=== PATIENT | female | born 1990 | race Caucasian/White ===

== ENCOUNTER 2022-12-09 08:00 | Emergency (ER) | payer OTHER, SELFPAY ==
[2022-12-09 08:10] VITALS: BP 144/80; PULSE 116; RESP 16; TEMP 38; O2SAT 99
--- NOTE | 2022-12-09 08:10 | ED.GENADULT ---
HPI - General Adult General Chief complaint: Upper Respiratory Infection Stated complaint: e/n/t Source: patient and RN notes reviewed History of Present Illness HPI narrative: 32-year-old female presents to urgent care with complaints of fever and sore throat starting last night. Patient states her daughter at home has strep throat. Patient states she took Tylenol last at 3 am. Patient reports bilateral ear pain. Denies any congestion, headache, vomiting, diarrhea, chest pain, or shortness of breath. Some parts of this dictation were generated by voice recognition software and may contain typographical and/or grammatical inaccuracies. Related Data Home Medications Medication Instructions Recorded Confirmed levonorgestrel 0.15 mg-ethinyl 1 tablet PO DAILY 12/09/22 12/09/22 estradiol 0.03 mg tablet (Reginald (28)) Allergies Allergy/AdvReac Type Severity Reaction Status Date / Time cetirizine Allergy Unknown HEART Verified 12/09/22 08:10 RACING Review of Systems Review of Systems: CONSTITUTIONAL:Fevers EYES: Denies visual changes, redness, or discharge. ENT: reports otalgia and sore throat CARDIOVASCULAR: Denies chest pain, palpitations, or edema. RESPIRATORY: Denies cough or dyspnea. GASTROINTESTINAL: Denies abdominal pain, nausea, vomiting, or diarrhea. GENITOURINARY: Denies dysuria or hematuria. SKIN: Denies rash or itching. MUSCULOSKELETAL: Denies back pain, joint pain, or myalgia. NEUROLOGIC: Denies headache, numbness, or weakness. PMFSH Comments At the time of my signature, I reviewed and agree with the nursing past medical, surgical, social, and family history. There is no relevant family history pertinent to the patient complaint. Exam Narrative: GENERAL: This is a well-nourished, well-developed patient, in no apparent distress. HEAD: normocephalic, atraumatic. EYES: PERRL. Sclera clear/white. Vision is grossly intact. EARS: External ears normal, auditory canals clear and without drainage, TMs normal without perforation. Hearing grossly intact. NOSE: External nose normal with no obvious nasal discharge, nares without redness, no rhinorrhea. THROAT: Posterior pharynx is erythremic with tonsils 2+ bilaterally. No exudate noted. NECK: Neck supple, non-tender without lymphadenopathy, masses or thyromegaly. CARDIOVASCULAR: Regular rate and rhythm without murmurs, gallops, or rubs. RESPIRATORY: Clear to auscultation. Breath sounds equal bilaterally. No wheezes, rales, or rhonchi. GASTROINTESTINAL: Abdomen soft, non-tender, nondistended. Bowel sounds are active. No hepato-splenomegaly, or palpable masses. No guarding. SKIN: warm, intact with no suspicious lesions or rash, good texture and turgor. NEURO: awake, alert, and oriented to person, place and time. There were no obvious focal neurologic abnormalities. Course Course Level of Care: Express Care Visit Vital Signs Vital signs: Vital Signs Temperature 100.4 F H 12/09/22 08:10 Pulse Rate 116 H 12/09/22 08:10 Respiratory Rate 16 12/09/22 08:10 Blood Pressure 144/80 H 12/09/22 08:10 Pulse Oximetry 99 12/09/22 08:10 Oxygen Delivery Room Air 12/09/22 08:10 Temperature 100.4 F H 12/09/22 08:10 Pulse Rate 116 H 12/09/22 08:10 Respiratory Rate 16 12/09/22 08:10 Blood Pressure 144/80 H 12/09/22 08:10 Pulse Oximetry 99 12/09/22 08:10 Oxygen Delivery Room Air 12/09/22 08:10 Reviewed. Medical Decision Making MDM Narrative Medical decision making narrative: After 24 hours on antibiotics throw tooth brush away and start using a new one. Do not share drinks. Take Motrin alternating with Tylenol for pain and fever alternating every 4 hours. Increase fluids, avoid caffeine. Follow up with Primary provider if not getting better this week Differential Diagnosis Differential Diagnosis: Strep, viral pharyngitis, otitis media Vital Signs Vital Signs: Vital Signs Temperature 100.4 F H
== END 2022-12-09 08:21 | disposition home or self-care (01) ==
PROVIDERS: Emergency Provider Nurse Practitioner Family
DX: J02.0 Streptococcal pharyngitis (principal)
CPT/HCPCS: 99213; G0463